=== PATIENT | male | born 1960 | race Caucasian/White ===

== ENCOUNTER 2021-02-26 23:00 | Inpatient (IN) | payer MEDICAID ==
[~2021-02-26] VITALS: Ht 188 cm; Wt 130.0 kg
[2021-02-26] MEDS ORDERED: iohexol 350MG/ML 100ml bottle IV ONE (23:15)
[2021-02-26 23:22] LABS: BASOPHILS # (AUTO) 0.1 X10'3 (0-0.2); BASOPHILS % (AUTO) 1.2 % (0-1); EOSINOPHILS # (AUTO) 0.3 X10'3 (0-0.9); HEMATOCRIT 48.8 % (42.0-52.0); HEMOGLOBIN 16.4 g/dl (14.0-17.9); LYMPHOCYTES # (AUTO) 3.9 X10'3 (1.1-4.8); LYMPHOCYTES % (AUTO) 36.6 % (21-51); MEAN CORPUSCULAR HGB CONC 33.7 g/dL (33.0-36.5); MEAN CORPUSCULAR VOLUME 97.9 FL (78-98); MONOCYTES % (AUTO) 9.6 % (2-12); NEUTROPHILS # (AUTO) 5.3 X10'3 (1.8-7.7); NEUTROPHILS % (AUTO) 49.6 % (42-75); PLATELET COUNT 216 X10'3 (140-440); RED BLOOD COUNT 4.98 X10'6 (4.70-6.10); RED CELL DISTRIBUTION WIDTH 13.8 % (11.5-14.5); WHITE BLOOD COUNT 10.6 X10'3 (4.5-11.0)
[2021-02-26 23:28] LABS: ALANINE AMINOTRANSFERASE 82 U/L (12-78); ALBUMIN 3.8 G/DL (3.4-5.0); ALBUMIN/GLOBULIN RATIO 0.9 (1.1-1.5); ALKALINE PHOSPHATASE 96 IU/L (46-116); ANION GAP 11 (8-16); ASPARTATE AMINO TRANSFERASE 63 U/L (10-37); BILIRUBIN,TOTAL 0.4 MG/DL (0.1-1.0); BLOOD UREA NITROGEN 8 MG/DL (7-18); BUN/CREATININE RATIO 9.2 (5.4-32.0); CALCIUM 9.3 MG/DL (8.5-10.1); CHLORIDE 101 MMOL/L (99-107); CREATININE 0.87 MG/DL (0.60-1.10); GLUCOSE 128 MG/DL (70-104); POTASSIUM 3.7 MMOL/L (3.5-5.1); SODIUM 140 MMOL/L (135-145); TOTAL PROTEIN 8.2 G/DL (6.4-8.2); eGFR 90 ML/MIN
[2021-02-26 23:30] LABS: PARTIAL THROMBOPLASTIN TIME 27 SECONDS (22-32)
[2021-02-26 23:32] LABS: ETHANOL 0.262 GM/DL (0.0-0.010); TROPONIN I < 0.04 NG/ML (0.0-0.05)
[2021-02-27] MEDS ORDERED: magnesium 2GM in 50ml NS 50 ML IV PRN (00:55)
[2021-02-27] MEDS ORDERED: ondansetron/PF 4mg/2ml inj IV PRN (00:55)
[2021-02-27] MEDS ORDERED: magnesium 4gm in 100ml NS 100 ML IV PRN (00:55)
[2021-02-27] MEDS ORDERED: potassium Cl 20 mEq SR tablet PO PRN ×2 (00:55)
[2021-02-27] MEDS ORDERED: acetaminophen 325mg tablet PO PRN (00:55)
[2021-02-27] MEDS ORDERED: magnesium Cl slow-release 64mg tablet PO PRN (00:55)
[2021-02-27] MEDS ORDERED: potassium Cl 40MEQ/1/2NS 520ml 520 ML IV PRN ×2 (00:55)
[2021-02-27] MEDS ORDERED: AMIT25TA9 PO (01:19)
[2021-02-27] MEDS ORDERED: TIOT4MIS2 INH (01:19)
[2021-02-27] MEDS ORDERED: LISI-790 PO (01:19)
[2021-02-27] MEDS ORDERED: FURO20TA4 PO (01:19)
[2021-02-27 02:05] LABS: URINE AMPHETAMINE SCREEN NEGATIVE (Neg); URINE BARBITUATE SCREEN NEGATIVE (Neg); URINE BENZODIAZEPINES SCREEN NEGATIVE (Neg); URINE CANNABINOID SCREEN NEGATIVE (Neg); URINE COCAINE SCREEN NEGATIVE (Neg); URINE METHADONE SCREEN NEGATIVE (Neg); URINE OPIATE SCREEN NEGATIVE (Neg); URINE PHENCYCLIDINE SCREEN NEGATIVE (Neg)
[2021-02-27 02:07] LABS: CLARITY,URINE CLEAR (Clear); COLOR,URINE YELLOW (Yellow); GLUCOSE, URINE NEGATIVE (Neg); KETONES,URINE NEGATIVE (Neg); LEUKOCYTE ESTERASE ,URINE NEGATIVE (Neg); NITRITES, URINE NEGATIVE (Neg); OCCULT BLOOD,URINE NEGATIVE (Neg); PROTEIN,URINE NEGATIVE (Neg); UROBILINOGEN,URINE 0.2 E.U/dL (0.2-1.0)
[2021-02-27 02:13] LABS: UA COLLECTION TYPE CLN CATCH MIDSTREAM
[2021-02-27] MEDS: normal saline 1000ml 1,000 ML IV SCH ×3 (03:12→23:05)
--- NOTE | 2021-02-27 06:42 | NUR ---
patient asleep on a hospital bed.call light within reach.We will monitor.
[2021-02-27 07:00] VITALS: BP 136/77
--- NOTE | 2021-02-27 07:00 | NUR ---
Patient in room ED 5. I have received report from Yovany WATT and had the opportunity to ask questions and assume patient care.
[2021-02-27] MEDS ORDERED: thiamine inj. 100 MG in normal saline 100ml IV soln 100 ML IV ONE (07:20)
[2021-02-27] MEDS ORDERED: LORazepam 1 MG tablet PO PRN (07:20)
[2021-02-27] MEDS: multivitamins, therapeutics tablet PO SCH (07:50)
[2021-02-27] MEDS: folic acid 1mg tablet PO SCH (07:51)
[2021-02-27] MEDS: thiamine 100mg tablet PO SCH (07:51)
[2021-02-27] MEDS: furosemide 40mg/4ml inj IV SCH (07:52)
[2021-02-27] MEDS: lisinopril 5mg tablet PO SCH (07:52)
[2021-02-27] MEDS ORDERED: folic acid inj. 2 MG, thiamine inj. 100 MG, MVI, adult No.4 with vit. K 10 ML in dextro... IV SCH ×4 (08:00)
[2021-02-27] MEDS: K and/or MAG REPLACEMENT MC SCH ×2 (08:00→18:28)
[2021-02-27] MEDS: ipratropium 0.5 MG/2.5ML nebule NEB SCH ×3 (08:06→20:22)
[2021-02-27 10:00] VITALS: BP 134/79
[2021-02-27 12:48] LABS: CHOL/HDL RATIO 4.7 (0.00-4.99); CHOLESTEROL 166 MG/DL (0-200); HDL CHOLESTEROL 35 MG/DL (35-60); LDL CHOLESTEROL 89 MG/DL (50-100); TRIGLYCERIDES 297 MG/DL (20-135)
[2021-02-27 15:15] VITALS: BP 135/81
--- NOTE | 2021-02-27 16:12 | NUR ---
Pt is in good spirits. Pt verbalized this visit has scared him into taking his health more seriously. Pt stated he has cut back to 1/2 pack of cigarettes a day and will work on drinking less. Pt has a good appetite and ambulated with physical therapy 200ft. Pts only complaint is mild general weakness. Will continue to monitor patient.
[2021-02-27 18:00] VITALS: BP 138/70
--- NOTE | 2021-02-27 18:09 | NUR ---
Problems reprioritized. Patient report given, questions answered & plan of care reviewed with Amarilys WATT.
--- NOTE | 2021-02-27 19:51 | NUR ---
Talked to [facility] to have the neurologist complete the report that he evaluated patient in the ER yesterday with his finding.
[2021-02-27] MEDS ORDERED: aspirin 81mg tab.chew PO ONE (20:40)
[2021-02-27] MEDS ORDERED: amitriptyline 25mg tablet PO SCH (21:00)
[2021-02-28] MEDS: ipratropium 0.5 MG/2.5ML nebule NEB SCH ×2 (02:39→07:45)
--- NOTE | 2021-02-28 05:59 | NUR ---
REPORT GIVEN TO SHUKRI VELASQUEZ.
[2021-02-28 06:00] VITALS: BP 135/88
--- NOTE | 2021-02-28 06:30 | NUR ---
RECEIVED REPORT FROM SHUKRI AGUILA
[2021-02-28 07:08] LABS: BASOPHILS # (AUTO) 0.1 X10'3 (0-0.2); EOSINOPHILS # (AUTO) 0.2 X10'3 (0-0.9); EOSINOPHILS % (AUTO) 2.8 % (0-6); HEMATOCRIT 45.5 % (42.0-52.0); HEMOGLOBIN 15.3 g/dl (14.0-17.9); LYMPHOCYTES # (AUTO) 1.8 X10'3 (1.1-4.8); LYMPHOCYTES % (AUTO) 21.4 % (21-51); MEAN CORPUSCULAR HGB CONC 33.7 g/dL (33.0-36.5); MEAN CORPUSCULAR VOLUME 98.1 FL (78-98); MEAN PLATELET VOLUME 9.6 FL (7.4-10.4); MONOCYTES % (AUTO) 11.5 % (2-12); NEUTROPHILS # (AUTO) 5.4 X10'3 (1.8-7.7); NEUTROPHILS % (AUTO) 63.3 % (42-75); PLATELET COUNT 186 X10'3 (140-440); RED BLOOD COUNT 4.64 X10'6 (4.70-6.10); WHITE BLOOD COUNT 8.6 X10'3 (4.5-11.0)
[2021-02-28 07:25] LABS: ALANINE AMINOTRANSFERASE 67 U/L (12-78); ALBUMIN 3.2 G/DL (3.4-5.0); ALBUMIN/GLOBULIN RATIO 0.8 (1.1-1.5); ALKALINE PHOSPHATASE 78 IU/L (46-116); AMYLASE 31 U/L (25-115); ANION GAP 9 (8-16); ASPARTATE AMINO TRANSFERASE 44 U/L (10-37); BILIRUBIN,TOTAL 0.5 MG/DL (0.1-1.0); BLOOD UREA NITROGEN 10 MG/DL (7-18); BUN/CREATININE RATIO 12.5 (5.4-32.0); CALCIUM 8.7 MG/DL (8.5-10.1); CHLORIDE 103 MMOL/L (99-107); GLUCOSE 128 MG/DL (70-104); LIPASE 116 U/L (73-393); PHOSPHORUS 3.1 MG/DL (2.3-4.5); POTASSIUM 3.8 MMOL/L (3.5-5.1); SODIUM 143 MMOL/L (135-145); TOTAL CARBON DIOXIDE 30.7 MMOL/L (24-32); eGFR > 90 ML/MIN
[2021-02-28] MEDS: K and/or MAG REPLACEMENT MC SCH (08:00)
[2021-02-28 08:04] LABS: HEMOGLOBIN A1C 6.4 % (4.5-6.2)
[2021-02-28] MEDS: thiamine 100mg tablet PO SCH (08:15)
[2021-02-28] MEDS: lisinopril 5mg tablet PO SCH (08:15)
[2021-02-28] MEDS: multivitamins, therapeutics tablet PO SCH (08:16)
[2021-02-28] MEDS: furosemide 40mg/4ml inj IV SCH (08:16)
[2021-02-28] MEDS: folic acid 1mg tablet PO SCH (08:16)
[2021-02-28] MEDS: normal saline 1000ml 1,000 ML IV SCH (08:21)
[2021-02-28] MEDS ORDERED: aspirin 81mg tab.chew PO SCH (08:30)
[2021-02-28 10:00] VITALS: BP 115/63
[2021-02-28] MEDS ORDERED: ASPI81TA53 PO (11:35)
[2021-02-28] MEDS ORDERED: FOLI0.4T6 PO (11:35)
[2021-02-28] MEDS ORDERED: THIA50TA10 PO (11:35)
[2021-02-28] MEDS ORDERED: MULT-25 PO (11:35)
--- NOTE | 2021-02-28 13:10 | NUR ---
pt d/c with instructions understanding of instructions and w/all belongings walking out to private vehicle to go home and f/u w/pcp
== END 2021-02-28 13:10 | disposition home or self-care (01) | DRG 47 ==
LOC: ER 23:01 → ED HOLD 02-27 00:52 → ORTHO 4S 02-27 07:19
PROVIDERS: ADMIT Internal Medicine; ATTEND Family Medicine
PROC: B3251ZZ Computerized Tomography (CT Scan) of Bilateral Common Carotid Arteries using Low Osmolar Contrast (ICD-10-PCS; principal; 2021-02-26)
PROC: B32G1ZZ Computerized Tomography (CT Scan) of Bilateral Vertebral Arteries using Low Osmolar Contrast (ICD-10-PCS; 2021-02-26)
PROC: B32R1ZZ Computerized Tomography (CT Scan) of Intracranial Arteries using Low Osmolar Contrast (ICD-10-PCS; 2021-02-26)
PROC: B3281ZZ Computerized Tomography (CT Scan) of Bilateral Internal Carotid Arteries using Low Osmolar Contrast (ICD-10-PCS; 2021-02-26)
DX: G45.9 Transient cerebral ischemic attack, unspecified (principal); B19.20 Unspecified viral hepatitis C without hepatic coma; F12.90 Cannabis use, unspecified, uncomplicated; F17.210 Nicotine dependence, cigarettes, uncomplicated; F10.229 Alcohol dependence with intoxication, unspecified; I10 Essential (primary) hypertension; I25.10 Atherosclerotic heart disease of native coronary artery without angina pectoris; I25.2 Old myocardial infarction; Z86.73 Personal history of transient ischemic attack (TIA), and cerebral infarction without residual deficits; Z71.6 Tobacco abuse counseling
CPT/HCPCS: 36415; 70450; 70496; 70498; 70551; 71045; 80053; 80061; 80305; 80320; 81003; 82150; 83036; 83690; 83735; 84100; 84484; 85025; 85610; 85730; 86885; 86900; 86901; 93005; 93308; 93880; 94640; 94760; 97116; 97161; 97530; 99285; G0378; J1940; J7030; Q9967